=== PATIENT | female | born 1975 | race Caucasian/White ===

== ENCOUNTER 2017-09-09 10:35 | Emergency (ER) | payer BC ==
--- NOTE | 2017-09-09 12:01 | UC ---
Throat Pain/Nasal Jean HPI - HPI Summary HPI Summary: 42 y/o female presents to the urgent care c/o sore throat, productive cough with green phlegm for the past 3 weeks. Pt reports symptoms started with common cold, but have gotten worse for the past week. She has had night sweats and chills and chest tightness with mild wheezing which has resolved with ibuprofen and Robitussin PO. Pt states sore throat and ALVARENGA is 2/10 now. She denies SOB, chest pain, abdominal pain, N/V/D. Her son has had similar symptoms. - History of Current Complaint Stated Complaint: COUGH,ST Time Seen by Provider: 09/09/17 11:57 Hx Obtained From: Patient Hx Last Menstrual Period: 11/12/14 Onset/Duration: Gradual Onset, Lasting Weeks - 3 weeks, Still Present, Worse Since - past week Severity: Moderate Pain Intensity: 2 Pain Scale Used: 0-10 Numeric Cough: Sputum Appears - green Associated Signs & Symptoms: Positive: Dysphagia, Wheezing, Nasal Discharge, Fever - Epiglottits Risk Factors Epiglottis Risk Factors: Negative - Allergies/Home Medications Allergies/Adverse Reactions: Allergies Allergy/AdvReac Type Severity Reaction Status Date / Time No Known Allergies Allergy Verified 09/09/17 12:06 PMH/Surg Hx/FS Hx/Imm Hx Previously Healthy: Yes Endocrine History: Hypothyroidism Psychological History: Depression - Surgical History Surgical History: Yes Surgery Procedure, Year, and Place: Placenta Abruptio - , 09/06/12, [facility]. Adnoidectomy, 1979 - Family History Known Family History: Positive: Diabetes Family History: Hypothryrodism - Social History Occupation: Employed Full-time Lives: With Family Alcohol Use: Occasionally Substance Use Type: Excessive Caffeine Substance Use Comment - Amount & Last Used: caffeine soda 1 Liter per day Smoking Status (MU): Never Smoked Tobacco Review of Systems Constitutional: Fever, Chills Skin: Negative Eyes: Negative ENT: Sore Throat, Ear Ache - B/L, Nasal Discharge, Sinus Congestion Respiratory: Cough - green phlegm, Other - wheezing Cardiovascular: Negative Gastrointestinal: Negative Genitourinary: Negative Motor: Negative Neurovascular: Negative Musculoskeletal: Negative Neurological: Negative Psychological: Negative Is Patient Immunocompromised?: No All Other Systems Reviewed And Are Negative: Yes Physical Exam Triage Information Reviewed: Yes - Additional Comments Vital Signs Reviewed: Yes General: well developed, well nourished female sitting in the examining table w/ o any apparent distress Eyes: Positive: Conjunctiva Clear - PERRLA, EOMI, fundi grossly normal ENT: Positive: Normal ENT inspection, Hearing grossly normal, Pharynx normal, Nasal congestion - edematous and erythematous nasal mucosa, Nasal drainage - yellowish drainage, TMs normal. Negative: Tonsillar swelling, Tonsillar exudate Neck: Positive: Supple, Nontender, No Lymphadenopathy Respiratory: no orthopnea or dyspnea. Able to speak in full sentences, no retractions or accessory muscle use, no tripod position, stridor, or head bobbing. breath sound presents, B/L lungs with diffuse crackles and mild wheezing RT>LF, no rales. Cardiovascular: Positive: RRR, No Murmur, Pulses Normal, Brisk Capillary Refill Abdomen Description: Positive: Nontender, No Organomegaly, Soft. Negative: CVA Tenderness (R), CVA Tenderness (L) Bowel Sounds: Positive: Present Musculoskeletal Exam: Normal Musculoskeletal: Positive: Strength Intact, ROM Intact, No Edema Neurological Exam: Normal Psychological Exam: Normal Skin Exam: Normal Throat Pain/Nasal Course/Dx - Course Course Of Treatment: 42 y/o female presents to the urgent care c/o sore throat, productive cough with green phlegm for the past 3 weeks. Pt reports symptoms started with common cold, but have gotten worse for the past week. She has had night sweats and chills and chest tightness with mild wheezing which has resolved with ibuprofen and Robitussin PO. Pt states sore throat and ALVARENGA is 2/10 now. She denies SOB, chest pain, abdominal pain, N/V/D. Her son has had similar symptoms.Hx obtained. Pt with B/L lungs with diffuse crackles and mild wheezing RT>LF, no rales. Chest X-ray ordered to r/o pneumonia. Impression: RT Middle lobe consolidation observed, radiologist recommends f/u with resolution. Pt given an albuterol nebulizer treatment at the clinic. Pt tolerated well Tx and wheezing resolve O2Sat: 96%. Pt's symptoms presented to Dr Rose, He recommended Rx Augmentin PO and Z-arvind to Tx Communitity acquire pneumonia. Rx sent to pharmacy, also Rx Tessalon PO and albuterol inhaler to alleviate cough and wheezing.I discussed all the findings and test results with the patient. Pt was instructed to return to the emergency room immediately if any of the symptoms return or worsens. Plan of care was discussed . Pt understands and agrees. All questions were answered at patient satisfaction. There were no further complaints or concerns. Pt left the clinic hemodynamically stable, A&OX3 - Differential Dx/Diagnosis Differential Diagnosis/HQI/PQRI: Influenza, Pharyngitis, Sinusitis, URI, Other - bronchitis, pneumonia, Provider Diagnoses: 1- Community acquired pneumonia. 2-Cough Discharge - Discharge Plan Condition: Stable Disposition: HOME Prescriptions: Albuterol HFA INHALER* [Ventolin HFA Inhaler*] 1 - 2 puff INH Q6H PRN #1 mdi PRN Reason: Cough Amoxicillin/Clavulanate TAB* [Augmentin TAB 875*] 875 mg PO BID #20 tab Azithromyxin ARVIND (NF) [Z-Arvind (Zithromax) 250 mg tabs #6] 2 tab PO .TODAY, THEN 1 DAILY #6 tab Benzonatate CAP* [Tessalon 100 MG CAP*] 100 mg PO TID PRN #21 cap PRN Reason: Cough Patient Education Materials: Community Acquired Pneumonia (ED) Forms: *Work Release Referrals: David Dodd MD [Primary Care Provider] - 3 Days Additional Instructions: 1-Please take full course of antibiotics to avoid resistance. 2-Take Tessalon PO as directed and use the albuterol inhaler to alleviate cough. Increase fluid intake, rest and eat well. 3- If symptoms do not improve or worsen or your develop SOB with fever and severe cough please go immediately to the ER further evaluation and treatment. 4-See your PCP in 2-3 days to check if your symptoms are improving
[2017-09-09 12:16] VITALS: BP 105/61
[2017-09-09] MEDS ORDERED: Albuterol 2.5 MG/3 ML NEB.SOL* (0.083%) INH ONE (12:27)
--- NOTE | 2017-09-09 12:40 | RAD ---
HISTORY: Cough, fever COMPARISONS: None VIEWS: 4: Frontal dual-energy and lateral views of the chest. FINDINGS: CARDIOMEDIASTINAL SILHOUETTE: The cardiomediastinal silhouette is normal. ZEHRA: The zehra are normal. PLEURA: The costophrenic angles are sharp. No pleural abnormalities are noted. LUNG PARENCHYMA: There is confluent alveolar opacification of the right lower lung localizing to the right middle lobe ABDOMEN: The upper abdomen is clear. There is no subphrenic gas. BONES AND SOFT TISSUES: No bone or soft tissue abnormalities are noted. OTHER: None. IMPRESSION: RIGHT MIDDLE LOBE CONSOLIDATION. RECOMMEND FOLLOW-UP UNTIL RESOLUTION TO EXCLUDE UNDERLYING PARENCHYMAL PATHOLOGY.
[2017-09-09] MEDS ORDERED: Albuterol 2.5 MG/3 ML NEB.SOL* (0.083%) ONE (12:45)
== END 2017-09-09 13:14 | disposition home or self-care (01) ==
LOC: UCCORT 10:35
DX: J18.9 Pneumonia, unspecified organism (principal); E03.9 Hypothyroidism, unspecified; F32.9 Major depressive disorder, single episode, unspecified
CPT/HCPCS: 71020; 99212; G0463